=== PATIENT | male | born 1970 | race Caucasian/White ===

== ENCOUNTER 2018-11-24 10:00 | Day surgery (SDC) | payer BC ==
[~2018-11-24] VITALS: Ht 185.4 cm; Wt 90.9 kg
[2018-11-24 10:30] VITALS: BP 147/56
[2018-11-24] MEDS ORDERED: SODIUM CHLORIDE 0.9% 1,000 ML IV ONE (10:30)
[2018-11-24] MEDS ORDERED: PROPOFOL 10 MG/ML, 20ML ONE (12:51)
== END 2018-11-24 13:23 | disposition home or self-care (01) ==
LOC: CACL 10:00
PROVIDERS: ATTEND Internal Medicine Cardiovascular Disease
DX: I08.0 Rheumatic disorders of both mitral and aortic valves (principal); E66.3 Overweight; Z68.28 Body mass index [BMI] 28.0-28.9, adult; Z72.89 Other problems related to lifestyle; Z98.890 Other specified postprocedural states; Z82.49 Family history of ischemic heart disease and other diseases of the circulatory system
CPT/HCPCS: 93312; 93321; 93325; J2704

== ENCOUNTER 2018-12-26 07:55 | Day surgery (SDC) | payer BC ==
[~2018-12-26] VITALS: Ht 185.4 cm; Wt 95.5 kg
[2018-12-26 08:23] VITALS: BP 143/61
[2018-12-26] MEDS ORDERED: FENTANYL PF 100 MCG/2ML ONE (09:24)
[2018-12-26] MEDS ORDERED: MIDAZOLAM 1 MG/ML, 5ML ONE (09:24)
[2018-12-26] MEDS ORDERED: NITROGLYCERIN 5 MG/ML, 10ML ONE (09:24)
[2018-12-26] MEDS ORDERED: LIDOCAINE 2%, 20ML ONE (09:25)
== END 2018-12-26 13:33 | disposition home or self-care (01) ==
LOC: CACL 07:55
PROVIDERS: ATTEND Internal Medicine Cardiovascular Disease
DX: I35.1 Nonrheumatic aortic (valve) insufficiency (principal); E66.3 Overweight; Z68.27 Body mass index [BMI] 27.0-27.9, adult; Z72.89 Other problems related to lifestyle; Z98.890 Other specified postprocedural states; Z82.49 Family history of ischemic heart disease and other diseases of the circulatory system
CPT/HCPCS: 93458; 99156; 99157; C1769; C1894; J2250; J3010; Q9967

== ENCOUNTER 2019-02-05 11:30 | Inpatient (IN) | payer BC ==
[~2019-02-05] VITALS: Ht 185.4 cm; Wt 96.8 kg
[2019-02-10 13:04] VITALS: BP 123/80
== END 2019-02-10 18:45 | disposition home or self-care (01) | DRG 220 ==
LOC: ORIP 13:28 → 5SO 02-06 04:54 → CSU 02-06 07:26 → 5SO 02-07 13:07
PROVIDERS: ADMIT Thoracic Surgery (Cardiothoracic Vascular Surgery); ATTEND Thoracic Surgery (Cardiothoracic Vascular Surgery)
PROC: 02RF08Z Replacement of Aortic Valve with Zooplastic Tissue, Open Approach (ICD-10-PCS; principal; 2019-02-06)
PROC: B246ZZ4 Ultrasonography of Right and Left Heart, Transesophageal (ICD-10-PCS; 2019-02-06)
PROC: 02HV33Z Insertion of Infusion Device into Superior Vena Cava, Percutaneous Approach (ICD-10-PCS; 2019-02-06)
PROC: B548ZZA Ultrasonography of Superior Vena Cava, Guidance (ICD-10-PCS; 2019-02-06)
PROC: 03HY32Z Insertion of Monitoring Device into Upper Artery, Percutaneous Approach (ICD-10-PCS; 2019-02-06)
PROC: 5A1221Z Performance of Cardiac Output, Continuous (ICD-10-PCS; 2019-02-06)
DX: I35.1 Nonrheumatic aortic (valve) insufficiency (principal); I44.2 Atrioventricular block, complete; I10 Essential (primary) hypertension; F17.210 Nicotine dependence, cigarettes, uncomplicated
CPT/HCPCS: 36415; 36600; J3490; S0017; 71045; 71046; 80048; 80053; 81003; 82040; 82330; 82800; 82803; 82810; 82947; 82962; 83036; 83735; 84132; 84295; 85014; 85018; 85025; 85049; 85347; 85610; 85730; 86850; 86900; 86923; 87081; 88305; 93005; 93312; 93321; 93325; 93880; 94002; C1768; G0378; J0697; J1644; J1815; J1885; J1940; J2250; J2405; J2704; J2720; J3010; J3370; J3475; J3480; P9045; P9047; C1751; C1760; J0171; J2270; J2370; J7050

== ENCOUNTER → 2020-01-07 | Outpatient (CLI) | payer BC ==
[~2020-01-07] MED LIST: ASPI81TA45 PO; BP MED PO; LOSA50TA14 PO; OXYC10TA6 PO
== END | disposition home or self-care (01) ==
LOC: CVU 12:29
PROVIDERS: ATTEND Internal Medicine Cardiovascular Disease
DX: I08.8 Other rheumatic multiple valve diseases (principal); I11.9 Hypertensive heart disease without heart failure
CPT/HCPCS: 93306